=== PATIENT | male | born 1935 | race Caucasian/White ===

== ENCOUNTER 2020-11-23 04:52 | Inpatient (IN) | payer MEDICARE, OTHER ==
[~2020-11-23] VITALS: Ht 167.6 cm; Wt 86.2 kg
[~2020-11-23 04:52] MED LIST: ALLOPURINOL300 MG PO; ASPIRIN BUFFER325 MG PO; AVALIDE 150-121 EACH; AVALIDE 300-121 EACH; CRESTOR10 MG PO; METOPROLOL SUCC25 MG; NEXIUM40 MG PO; TOPROL XL50 MG PO
[2020-11-23 05:16] LABS: BASOPHILS % 0.3 % (0.0-1.0); EOSINOPHILS # (AUTO) 0.2 (0.0-0.4); EOSINOPHILS % 3.2 % (0.0-6.0); HEMOGLOBIN 11.3 g/dL (14.0-18.0); LYMPHOCYTES # (AUTO) 2.1 (1.0-3.2); LYMPHOCYTES % 33.2 % (18.0-39.1); MEAN CORPUSCULAR HEMOGLOBIN 30.1 pg (28-32); MEAN CORPUSCULAR HGB CONC 32.3 g/dL (31-35); MEAN CORPUSCULAR VOLUME 93.1 fL (81-99); MONOCYTES # (AUTO) 0.5 (0.2-0.8); MONOCYTES % 8.1 % (4.4-11.3); NEUTROPHILS # (AUTO) 3.4 (2.1-6.9); PLATELET COUNT 119 x10e3/uL (140-360); RED BLOOD COUNT 3.76 x10e6/uL (4.3-5.7); RED CELL DISTRIBUTION WIDTH 14.8 % (11.7-14.4)
[2020-11-23 05:28] LABS: INR 0.95; PROTHROMBIN TIME 13.2 seconds (11.9-14.5)
[2020-11-23 05:29] LABS: PARTIAL THROMBOPLASTIN TIME 31.5 seconds (23.8-35.5)
[2020-11-23 05:36] LABS: ALBUMIN 3.4 g/dL (3.5-5.0); ALBUMIN/GLOBULIN RATIO 1.1 (0.8-2.0); ANION GAP 14.6 mmol/L (8-16); CALCIUM 8.6 mg/dL (8.4-10.2); CREATININE, SERUM 1.84 mg/dL (0.72-1.25); POTASSIUM 4.6 mmol/L (3.5-5.1)
[2020-11-23 05:44] LABS: CREATINE KINASE MB 2.3 ng/mL (0-5.0)
[2020-11-23] MEDS ORDERED: SODIUM CHLORIDE 0.9% 1000ML 1,000 ML IV ONE (06:45)
[2020-11-23] MEDS ORDERED: PANTOPRAZOLE SOD 40 MG TABEC PO PRN (08:30)
[2020-11-23] MEDS ORDERED: METOPROLOL SUCCINATE 50 MG TAB XL PO ONE (08:30)
[2020-11-23] MEDS ORDERED: ASPIRIN 81 MG ENTERIC COATED PO SCH (09:00)
[2020-11-23] MEDS: ALLOPURINOL 300 MG TAB PO SCH (09:04)
[2020-11-23] MEDS ORDERED: MAGNESIUM SULFATE 2GM/50ML 50 ML IV ONE (09:45)
[2020-11-23 10:20] VITALS: BP 130/62
[2020-11-23] MEDS: IRBESARTAN 150 MG TAB PO SCH (12:10)
[2020-11-23 14:02] LABS: CREATINE KINASE MB 35.7 ng/mL (0-5.0)
[2020-11-23] MEDS ORDERED: ENOXAPARIN SOD INJ 40 MG/0.4 ML SYR SC SCH ×2 (14:45→17:00)
[2020-11-23] MEDS: ENOXAPARIN SOD INJ 40 MG/0.4 ML SYR SC SCH (15:00)
[2020-11-23 15:47] VITALS: BP 121/46
[2020-11-23 19:15] LABS: CREATINE KINASE MB 47.2 ng/mL (0-5.0)
[2020-11-23 20:00] VITALS: BP 135/63
[2020-11-23 20:16] VITALS: BP 135/63
[2020-11-23] MEDS: SIMVASTATIN 20 MG TAB PO SCH (21:00)
[2020-11-24] VITALS (9 sets, daily range): BP systolic 123–152; BP diastolic 59–76
[2020-11-24] MEDS: METOPROLOL SUCCINATE 50 MG TAB XL PO SCH (05:17)
[2020-11-24 06:15] LABS: BASOPHILS % 0.3 % (0.0-1.0); EOSINOPHILS # (AUTO) 0.2 (0.0-0.4); EOSINOPHILS % 3.1 % (0.0-6.0); HEMATOCRIT 34.2 % (38.2-49.6); LYMPHOCYTES # (AUTO) 1.8 (1.0-3.2); LYMPHOCYTES % 26.7 % (18.0-39.1); MEAN CORPUSCULAR HEMOGLOBIN 30.7 pg (28-32); MEAN CORPUSCULAR HGB CONC 32.2 g/dL (31-35); MEAN CORPUSCULAR VOLUME 95.5 fL (81-99); MONOCYTES # (AUTO) 0.5 (0.2-0.8); MONOCYTES % 7.5 % (4.4-11.3); NEUTROPHILS # (AUTO) 4.2 (2.1-6.9); NEUTROPHILS % 62.1 % (38.7-80.0); PLATELET COUNT 113 x10e3/uL (140-360); RED BLOOD COUNT 3.58 x10e6/uL (4.3-5.7); RED CELL DISTRIBUTION WIDTH 14.7 % (11.7-14.4)
[2020-11-24 06:44] LABS: ALBUMIN/GLOBULIN RATIO 1.1 (0.8-2.0); CALCIUM 8.3 mg/dL (8.4-10.2); CHOL/HDL RATIO 2.7 (3.9-4.7); CREATININE, SERUM 1.85 mg/dL (0.72-1.25)
[2020-11-24] MEDS: ASPIRIN 325 MG TAB EC PO SCH (08:55)
[2020-11-24] MEDS: IRBESARTAN 150 MG TAB PO SCH (08:56)
[2020-11-24] MEDS: ENOXAPARIN SOD INJ 40 MG/0.4 ML SYR SC SCH ×2 (08:56→21:52)
[2020-11-24] MEDS: ALLOPURINOL 300 MG TAB PO SCH (08:56)
[2020-11-24] MEDS ORDERED: MAGNESIUM SULFATE 2GM/50ML 50 ML IV ONE (09:45)
[2020-11-24] MEDS ORDERED: SODIUM CHLORIDE 0.45% 1,000 ML IV SCH (09:45)
[2020-11-24] MEDS ORDERED: ACETYLCYSTEINE 200 MG/ML 4ML VIAL PO SCH (10:00)
[2020-11-24] MEDS: FUROSEMIDE 40 MG TAB PO SCH (11:30)
[2020-11-24] MEDS: PANTOPRAZOLE SOD 40 MG TABEC PO SCH (13:09)
[2020-11-24] MEDS: SODIUM CHLORIDE 0.9% 1000ML 1,000 ML IV SCH (17:22)
[2020-11-24] MEDS: ACETYLCYSTEINE 200 MG/ML 4ML VIAL PO SCH (17:23)
[2020-11-24] MEDS: SIMVASTATIN 20 MG TAB PO SCH (21:52)
[2020-11-25] VITALS (8 sets, daily range): BP systolic 95–161; BP diastolic 58–77
[2020-11-25 05:34] LABS: MAGNESIUM 1.6 MG/DL (1.3-2.1); PHOSPHORUS 3.3 MG/DL (2.3-4.7)
[2020-11-25 05:49] LABS: ANION GAP 11.6 mmol/L (8-16); CALCIUM 8.4 mg/dL (8.4-10.2); CREATININE, SERUM 1.85 mg/dL (0.72-1.25); POTASSIUM 4.6 mmol/L (3.5-5.1)
[2020-11-25] MEDS: SODIUM CHLORIDE 0.9% 1000ML 1,000 ML IV SCH ×2 (06:30→21:35)
[2020-11-25] MEDS: ACETYLCYSTEINE 200 MG/ML 4ML VIAL PO SCH ×2 (06:47→18:19)
[2020-11-25] MEDS: METOPROLOL SUCCINATE 50 MG TAB XL PO SCH (06:56)
[2020-11-25] MEDS ORDERED: MAGNESIUM SULFATE 2GM/50ML IV ONE (08:45)
[2020-11-25] MEDS ORDERED: HYDRALAZINE HCL 20 MG/ML VIAL IV PRN (08:45)
[2020-11-25] MEDS: ASPIRIN 325 MG TAB EC PO SCH (09:00)
[2020-11-25] MEDS: IRBESARTAN 150 MG TAB PO SCH (09:01)
[2020-11-25] MEDS: ALLOPURINOL 300 MG TAB PO SCH (09:01)
[2020-11-25] MEDS: PANTOPRAZOLE SOD 40 MG TABEC PO SCH (09:01)
[2020-11-25] MEDS: FUROSEMIDE 40 MG TAB PO SCH (09:01)
[2020-11-25] MEDS: ENOXAPARIN SOD INJ 40 MG/0.4 ML SYR SC SCH (09:01)
[2020-11-25] MEDS ORDERED: MAGNESIUM SULFATE 2GM/50ML 50 ML IV ONE (09:15)
[2020-11-25] MEDS: ISOSORBIDE MONONITRATE 30 MG TAB CR PO SCH (09:19)
[2020-11-25] MEDS: HYDRALAZINE HCL 25 MG TAB PO SCH ×3 (09:19→22:00)
[2020-11-25] MEDS ORDERED: DIPHENHYDRAMINE HCL 25 MG CAP PO PRN (10:15)
[2020-11-25] MEDS: SIMVASTATIN 20 MG TAB PO SCH (22:09)
[2020-11-26] VITALS (8 sets, daily range): BP systolic 119–170; BP diastolic 52–84
[2020-11-26 06:07] LABS: BASOPHILS % 0.7 % (0.0-1.0); EOSINOPHILS # (AUTO) 0.3 (0.0-0.4); EOSINOPHILS % 4.1 % (0.0-6.0); HEMATOCRIT 35.2 % (38.2-49.6); HEMOGLOBIN 11.3 g/dL (14.0-18.0); LYMPHOCYTES # (AUTO) 1.5 (1.0-3.2); LYMPHOCYTES % 24.8 % (18.0-39.1); MEAN CORPUSCULAR HEMOGLOBIN 30.1 pg (28-32); MEAN CORPUSCULAR HGB CONC 32.1 g/dL (31-35); MEAN CORPUSCULAR VOLUME 93.9 fL (81-99); MONOCYTES # (AUTO) 0.6 (0.2-0.8); NEUTROPHILS # (AUTO) 3.8 (2.1-6.9); NEUTROPHILS % 61.1 % (38.7-80.0); PLATELET COUNT 115 x10e3/uL (140-360); RED BLOOD COUNT 3.75 x10e6/uL (4.3-5.7); RED CELL DISTRIBUTION WIDTH 14.8 % (11.7-14.4)
[2020-11-26] MEDS: ACETYLCYSTEINE 200 MG/ML 4ML VIAL PO SCH ×2 (06:25→17:25)
[2020-11-26] MEDS: HYDRALAZINE HCL 25 MG TAB PO SCH ×3 (06:27→22:30)
[2020-11-26] MEDS: METOPROLOL SUCCINATE 50 MG TAB XL PO SCH (06:28)
[2020-11-26 06:31] LABS: ANION GAP 14.1 mmol/L (8-16); CALCIUM 8.4 mg/dL (8.4-10.2); CREATININE, SERUM 1.97 mg/dL (0.72-1.25); POTASSIUM 4.1 mmol/L (3.5-5.1)
[2020-11-26] MEDS ORDERED: MIDAZOLAM HCL 2 MG/2 ML VIAL ONE (10:09)
[2020-11-26] MEDS ORDERED: LIDOCAINE HCL 2% LOCAL 20 ML VIAL ONE (10:09)
[2020-11-26] MEDS ORDERED: FENTANYL CITRATE/PF 100MCG/2 ML INJ ONE (10:09)
[2020-11-26] MEDS ORDERED: HEPARIN SOD/SOD CHLORIDE 2,000 ML ONE (10:10)
[2020-11-26] MEDS ORDERED: IOPAMIDOL 370 MG/ML 200 ML INFUS..BTL INJ ONE (10:10)
[2020-11-26] MEDS ORDERED: SODIUM CHLORIDE 0.9% 1000ML 0 ML ONE (10:10)
[2020-11-26] MEDS ORDERED: METOPROLOL TARTRATE INJ 1 MG/ML VIAL ONE (11:01)
[2020-11-26] MEDS ORDERED: ACETAMINOPHEN 325 MG TAB PO PRN (11:15)
[2020-11-26] MEDS: ISOSORBIDE MONONITRATE 30 MG TAB CR PO SCH (12:05)
[2020-11-26] MEDS: ASPIRIN 325 MG TAB EC PO SCH (12:05)
[2020-11-26] MEDS: IRBESARTAN 150 MG TAB PO SCH (12:05)
[2020-11-26] MEDS: ALLOPURINOL 300 MG TAB PO SCH (12:05)
[2020-11-26] MEDS: PANTOPRAZOLE SOD 40 MG TABEC PO SCH (12:05)
[2020-11-26] MEDS: SODIUM CHLORIDE 0.9% 1000ML 1,000 ML IV SCH (12:24)
[2020-11-26] MEDS: SIMVASTATIN 20 MG TAB PO SCH (21:00)
[2020-11-27] VITALS (7 sets, daily range): BP systolic 104–158; BP diastolic 40–77
[2020-11-27] MEDS: HYDRALAZINE HCL 25 MG TAB PO SCH ×3 (06:34→21:32)
[2020-11-27] MEDS: METOPROLOL SUCCINATE 50 MG TAB XL PO SCH (06:35)
[2020-11-27 06:42] LABS: ANION GAP 12.5 mmol/L (8-16); CALCIUM 8.1 mg/dL (8.4-10.2); CREATININE, SERUM 2.04 mg/dL (0.72-1.25); POTASSIUM 4.5 mmol/L (3.5-5.1)
[2020-11-27] MEDS: ACETYLCYSTEINE 200 MG/ML 4ML VIAL PO SCH (09:00)
[2020-11-27] MEDS: ALLOPURINOL 300 MG TAB PO SCH (10:00)
[2020-11-27] MEDS: MAGNESIUM OXIDE 400 MG TAB PO SCH ×2 (10:00→16:18)
[2020-11-27] MEDS: ISOSORBIDE MONONITRATE 30 MG TAB CR PO SCH (10:00)
[2020-11-27] MEDS: IRBESARTAN 150 MG TAB PO SCH (10:00)
[2020-11-27] MEDS: PANTOPRAZOLE SOD 40 MG TABEC PO SCH (10:00)
[2020-11-27] MEDS: ASPIRIN 325 MG TAB EC PO SCH (10:00)
[2020-11-27] MEDS ORDERED: ACETYLCYSTEINE 200 MG/ML 4ML VIAL PO SCH (13:00)
[2020-11-27] MEDS: SIMVASTATIN 20 MG TAB PO SCH (21:33)
[2020-11-28 00:19] VITALS: BP 160/62
[2020-11-28 05:08] LABS: BASOPHILS % 0.5 % (0.0-1.0); EOSINOPHILS # (AUTO) 0.3 (0.0-0.4); EOSINOPHILS % 4.2 % (0.0-6.0); HEMATOCRIT 34.9 % (38.2-49.6); HEMOGLOBIN 11.3 g/dL (14.0-18.0); LYMPHOCYTES # (AUTO) 1.7 (1.0-3.2); LYMPHOCYTES % 28.4 % (18.0-39.1); MEAN CORPUSCULAR HEMOGLOBIN 30.3 pg (28-32); MEAN CORPUSCULAR HGB CONC 32.4 g/dL (31-35); MEAN CORPUSCULAR VOLUME 93.6 fL (81-99); MONOCYTES # (AUTO) 0.5 (0.2-0.8); NEUTROPHILS # (AUTO) 3.6 (2.1-6.9); NEUTROPHILS % 58.6 % (38.7-80.0); PLATELET COUNT 120 x10e3/uL (140-360); RED BLOOD COUNT 3.73 x10e6/uL (4.3-5.7)
[2020-11-28 05:23] LABS: ANION GAP 14.3 mmol/L (8-16); CALCIUM 8.3 mg/dL (8.4-10.2); CREATININE, SERUM 1.87 mg/dL (0.72-1.25); POTASSIUM 4.3 mmol/L (3.5-5.1)
[2020-11-28 05:44] VITALS: BP 146/67
[2020-11-28] MEDS: HYDRALAZINE HCL 25 MG TAB PO SCH ×3 (05:49→20:45)
[2020-11-28] MEDS: METOPROLOL SUCCINATE 50 MG TAB XL PO SCH (05:50)
[2020-11-28 06:20] LABS: MAGNESIUM 1.7 MG/DL (1.3-2.1); PHOSPHORUS 3.1 MG/DL (2.3-4.7)
[2020-11-28 08:15] VITALS: BP 130/59
[2020-11-28] MEDS: MAGNESIUM OXIDE 400 MG TAB PO SCH ×2 (09:01→16:53)
[2020-11-28] MEDS: ALLOPURINOL 300 MG TAB PO SCH (09:01)
[2020-11-28] MEDS: ASPIRIN 325 MG TAB EC PO SCH (09:01)
[2020-11-28] MEDS: PANTOPRAZOLE SOD 40 MG TABEC PO SCH (09:01)
[2020-11-28] MEDS: ISOSORBIDE MONONITRATE 30 MG TAB CR PO SCH (09:05)
[2020-11-28 10:31] VITALS: BP 130/59
[2020-11-28 15:59] VITALS: BP 122/56
[2020-11-28 20:00] VITALS: BP 121/71
[2020-11-28] MEDS: SIMVASTATIN 20 MG TAB PO SCH (20:44)
== END 2020-11-28 22:27 | disposition short-term general hospital (02) | DRG 281 ==
LOC: ER 05:00 → ERHOLD 06:51 → OBSVTOIN 09:29 → MED/SURG2 10:25
PROVIDERS: ADMIT Internal Medicine; ATTEND Internal Medicine
PROC: 4A023N7 Measurement of Cardiac Sampling and Pressure, Left Heart, Percutaneous Approach (ICD-10-PCS; principal; 2020-11-26)
PROC: B2111ZZ Fluoroscopy of Multiple Coronary Arteries using Low Osmolar Contrast (ICD-10-PCS; 2020-11-26)
DX: I21.4 Non-ST elevation (NSTEMI) myocardial infarction (principal); I13.0 Hypertensive heart and chronic kidney disease with heart failure and stage 1 through stage 4 chronic kidney disease, or unspecified chronic kidney disease; N17.9 Acute kidney failure, unspecified; I50.22 Chronic systolic (congestive) heart failure; I25.10 Atherosclerotic heart disease of native coronary artery without angina pectoris; Z88.0 Allergy status to penicillin; N18.30 Chronic kidney disease, stage 3 unspecified; I73.9 Peripheral vascular disease, unspecified; I49.5 Sick sinus syndrome; I25.2 Old myocardial infarction; E83.42 Hypomagnesemia; I48.0 Paroxysmal atrial fibrillation; Z20.822 Contact with and (suspected) exposure to COVID-19
CPT/HCPCS: 36415; 71045; 71250; 80048; 80053; 80061; 82550; 82553; 83735; 83880; 84100; 84443; 84484; 85025; 85610; 85730; 93005; 93306; 93454; 93880; 99152; 99153; 99251; 99284; C1766; C1887; J1650; J2001; J2250; J3010; J3475; J7030; Q9967; U0002